=== PATIENT | female | born 1985 ===

== ENCOUNTER 2025-02-27 18:06 | Outpatient (REF) | payer OTHER, SELFPAY ==
[2025-02-27 22:21] LABS: Estimated GFR 129.03 (mL/min/1.73m2)
== END 2025-02-27 18:07 | disposition home or self-care (01) ==
LOC: LBN 18:06
PROVIDERS: Visit Provider Nurse Practitioner Family
DX: M79.605 Pain in left leg (principal)
CPT/HCPCS: 82565; 85379